=== PATIENT | female | born 1965 | race Caucasian/White ===

== ENCOUNTER 2017-08-25 07:50 | Day surgery (SDC) | payer OTHER ==
[~2017-08-25 07:50] MED LIST: SYNTHROID137 MCG PO; VITAMIN AND MIN PO
== END 2017-08-25 14:30 | disposition home or self-care (01) ==
LOC: CIR.AMB 07:50
DX: M77.12 Lateral epicondylitis, left elbow (principal)

== ENCOUNTER 2019-01-11 06:45 | Day surgery (SDC) | payer OTHER ==
[~2019-01-11 06:45] MED LIST changes: +ATIVAN0.5 M1 PO
== END 2019-01-11 15:10 | disposition home or self-care (01) ==
LOC: CIR.AMB 06:45 → EDSTATUS 10:45 → SURG 10:45 → CIR.AMB 10:45
DX: M77.11 Lateral epicondylitis, right elbow (principal); G56.31 Lesion of radial nerve, right upper limb

== ENCOUNTER 2020-04-29 07:57 | Outpatient (CLI) | payer OTHER | END 2020-04-29 08:11 | disposition home or self-care (01) | LOC: RX STUDY 07:57 | PROVIDERS: ATTEND Otolaryngology Plastic Surgery within the Head & Neck | DX: R13.19 Other dysphagia (principal) ==

== ENCOUNTER 2021-05-13 10:51 | Outpatient (CLI) | payer OTHER | END 2021-05-13 11:16 | disposition home or self-care (01) | LOC: MAMO-SONO 10:51 | PROVIDERS: ATTEND Physical Medicine & Rehabilitation | DX: M54.50 Low back pain, unspecified (principal); N64.89 Other specified disorders of breast; M77.11 Lateral epicondylitis, right elbow ==

== ENCOUNTER 2022-07-15 07:21 | Outpatient (CLI) | payer OTHER | END 2022-07-15 07:31 | disposition home or self-care (01) | LOC: SONOGRAMA 07:21 | PROVIDERS: ATTEND General Practice | DX: M25.521 Pain in right elbow (principal) ==

== ENCOUNTER 2022-10-16 07:00 | Emergency (ER) | payer OTHER ==
[~2022-10-16] VITALS: Ht 152.4 cm; Wt 68.0 kg
[2022-10-16] MEDS ORDERED: ADVAIR HFA 230/12 GM (07:34)
[2022-10-16] MEDS ORDERED: PROAIR RESPICL90 MCG (07:35)
[2022-10-16] MEDS ORDERED: KAPSPARGO SPRIN25 MG (07:35)
== END 2022-10-16 18:17 | disposition home or self-care (01) ==
LOC: ER 07:00
PROVIDERS: Emergency Medicine
DX: R42 Dizziness and giddiness (principal); E03.9 Hypothyroidism, unspecified; Z88.8 Allergy status to other drugs, medicaments and biological substances